=== PATIENT | male | born 1955 | race Caucasian/White ===

== ENCOUNTER 2019-01-23 17:06 | Emergency (ER) | payer OTHER ==
[~2019-01-23] VITALS: Ht 180.3 cm; Wt 88.0 kg
[2019-01-23 17:47] LABS: BASOPHILS # (AUTO) 0.03 x10^3/uL (0-0.1); BASOPHILS % (AUTO) 0 % (0-1); EOSINOPHILS # (AUTO) 0.11 x10^3/uL (0-0.4); EOSINOPHILS % (AUTO) 2 % (1-7); LYMPHOCYTES # (AUTO) 0.99 x10^3/uL (1-3.4); LYMPHOCYTES % (AUTO) 13 % (22-44); MD NO; MEAN CORPUSCULAR HEMOGLOBIN 33.5 pg (27.5-34.5); MEAN CORPUSCULAR HGB CONC 33.5 g/dL (33.2-36.2); MEAN CORPUSCULAR VOLUME 99.8 fL (81-97); MEAN PLATELET VOLUME 7.9 fL (7.4-10.4); MONOCYTES # (AUTO) 0.29 x10^3/uL (0.2-0.8); MONOCYTES % (AUTO) 4 % (2-9); NEUTROPHILS # (AUTO) 5.96 x10^3/uL (1.8-6.8); NEUTROPHILS % (AUTO) 81 % (42-75); PLATELET COUNT 168 x10^3/uL (130-400); RED BLOOD COUNT 4.49 x10^6/uL (4.38-5.82); RED CELL DISTRIBUTION WIDTH 13.6 % (9.4-14.8)
[2019-01-23 17:58] LABS: ANION GAP 9 mmol/L (5-15); CALCIUM 8.8 mg/dL (8.5-10.1); CHLORIDE 105 mmol/L (98-107); CREATININE 0.89 mg/dL (0.7-1.3)
[2019-01-23] MEDS ORDERED: PROPOFOL 10 MG/ML, 20ML IVP ONE (18:00)
[2019-01-23] MEDS ORDERED: BENA40TA3 PO (18:12)
[2019-01-23] MEDS ORDERED: ATOR20TA37 PO (18:12)
--- NOTE | 2019-01-23 18:13 | NUR ---
First contact with pt. Pt states fractured R ankle today while skiing. Splint in place applied by urgent care. Pt denies pain. CMS in R LE intact, splint CDI.
[2019-01-23] MEDS ORDERED: PROPOFOL 10 MG/ML, 20ML ONE ×2 (18:36→18:57)
--- NOTE | 2019-01-23 18:47 | NUR ---
RECEIVED BS REPORT FROM JESUS MANUEL BRAVO TO ASSUME CARE OF PT. AT THIS TIME.
[2019-01-23] MEDS ORDERED: FENTANYL PF 100 MCG/2ML ONE (18:58)
--- NOTE | 2019-01-23 19:06 | NUR ---
CON SEDATION STARTED AT 1900. PT. AWAKE NOW AND A&O X 4. SPLINT BEING PLACED AT THIS TIME. DR. CLIFTON ORDERING X-RAY.
--- NOTE | 2019-01-23 19:24 | NUR ---
X-RAY COMPLETED. DR. CLIFTON WAS IN TO DISCUSS D/C PLAN WITH PT. AND . PT. MAINTAINING O2 SAT AT 98% ON RA. NADN. PT. FULLY RECOVERED. DR. HAYNES OFFICE TO CALL PT. TOMORROW FOR F/U APPT.
--- NOTE | 2019-01-23 19:26 | NUR ---
120MG PROPOFOL WASTED WITH JESUS MANUEL CULP A WITNESS.
[2019-01-23 20:03] VITALS: BP 143/85
== END 2019-01-23 20:04 | disposition home or self-care (01) ==
LOC: ED 20:00
DX: S82.61XA Displaced fracture of lateral malleolus of right fibula, initial encounter for closed fracture (principal); X50.1XXA Overexertion from prolonged static or awkward postures, initial encounter; Y93.23 Activity, snow (alpine) (downhill) skiing, snowboarding, sledding, tobogganing and snow tubing; Y92.009 Unspecified place in unspecified non-institutional (private) residence as the place of occurrence of the external cause; Y99.8 Other external cause status
CPT/HCPCS: 27788; 36415; 80048; 85025; 93005; 99285